=== PATIENT | male | born 2000 | race Caucasian/White ===

== ENCOUNTER 2020-08-08 17:22 | Emergency (ER) | payer SELFPAY ==
[2020-08-08 17:37] VITALS: BP 131/71; PULSE 75
--- NOTE | 2020-08-08 17:47 | EDM.PDOC ---
ED HPI GENERAL MEDICAL PROBLEM - General Chief Complaint: Abdominal Pain Stated Complaint: ABD Pain Time Seen by Provider: 08/08/20 17:35 Source of Information: Reports: Patient History Limitations: Reports: No Limitations - History of Present Illness INITIAL COMMENTS - FREE TEXT/NARRATIVE: Patient presents to ER with a 3 day history of abdominal pain. States had been waxing and waning, now getting worse. Has pain all across his lower abdomen, hurts with pressure applied "anywhere on my abdomen". Has felt feverish. States felt quite warm when he awoke this am. He admits to nausea each morning when awakening. No vomiting. Denies constipation or diarrhea. No blood in his stools. No urinary symptoms. Denies sinus congestion, sore throat, cough. Onset: Gradual Duration: Day(s):, Waxing/Waning Location: Reports: Abdomen Quality: Reports: Ache Severity: Moderate Improves with: Reports: None Associated Symptoms: Reports: Fever/Chills, Nausea/Vomiting. Denies: Confusion, Chest Pain, Cough, Loss of Appetite, Malaise, Shortness of Breath Treatments HYDROE[employer]: Reports: Acetaminophen lower abd Pain Score (Numeric/FACES): 6 - Related Data Allergies Allergy/AdvReac Type Severity Reaction Status Date / Time carbinoxamine maleate Allergy Hives Verified 08/08/20 17:50 [From Rondec] Cephalosporins Allergy Rash Verified 08/08/20 17:50 pseudoephedrine HCl Allergy Hives Verified 08/08/20 17:50 [From Rondec] sulfamethoxazole Allergy Stomach Verified 08/08/20 17:50 [From Bactrim] Ache trimethoprim [From Bactrim] Allergy Stomach Verified 08/08/20 17:50 Ache Past Medical History - Past Health History Medical/Surgical History: Denies Medical/Surgical History Cardiovascular History: Reports: Hypertension Immunologic History: Reports: Immunosuppression - Past Surgical History HEENT Surgical History: Reports: Myringotomy w Tube(s), Tonsillectomy Social & Family History - Family History Family Medical History: Noncontributory - Tobacco Use Smoking Status *Q: Current Every Day Smoker Years of Tobacco use: 6 Packs/Tins Daily: 1 - Caffeine Use Caffeine Use: Reports: Soda - Recreational Drug Use Recreational Drug Use: No ED ROS GENERAL - Review of Systems Review Of Systems: See Below Constitutional: Reports: Fever, Chills, Malaise, Weakness, Fatigue. Denies: Decreased Appetite HEENT: Reports: Rhinitis. Denies: Ear Pain, Throat Pain Respiratory: Denies: Shortness of Breath, Cough Cardiovascular: Denies: Chest Pain, Edema, Lightheadedness Endocrine: Reports: Fatigue GI/Abdominal: Reports: Abdominal Pain, Nausea. Denies: Black Stool, Bloody Stool, Constipation, Diarrhea, Vomiting : Reports: No Symptoms Musculoskeletal: Reports: No Symptoms Skin: Reports: No Symptoms Neurological: Reports: No Symptoms Psychiatric: Reports: No Symptoms ED EXAM, GI/ABD - Physical Exam Exam: See Below Exam Limited By: No Limitations General Appearance: Alert, WD/WN, No Apparent Distress Ears: Normal External Exam, Normal TMs Nose: Normal Inspection, Normal Mucosa, No Blood Throat/Mouth: Normal Inspection, Normal Oropharynx Head: Normocephalic Neck: Normal Inspection, Supple, Non-Tender Respiratory/Chest: No Respiratory Distress, Lungs Clear, Normal Breath Sounds Cardiovascular: Regular Rate, Rhythm GI/Abdominal Exam: Normal Bowel Sounds, Soft, Tender (tender diffusely throughout) Extremities: Normal Inspection, No Pedal Edema Neurological: Alert, Oriented Skin Exam: Warm, Dry Course - Vital Signs Last Recorded V/S: Last Vital Signs Temp 97.8 F 08/08/20 17:26 Pulse 75 08/08/20 17:26 Resp 14 08/08/20 17:26 BP 131/71 08/08/20 17:26 Pulse Ox 98 08/08/20 17:26 - Orders/Labs/Meds Orders: Active Orders 24 hr Category Date Time Status Abdomen 2V AP Flat Upright [CR] Stat Exams 08/08/20 17:34 Taken UA RFX RADHA AND CULT IF INDIC [URIN] Stat Lab 08/08/20 17:34 Ordered Labs: Laboratory Tests 08/08/20 08/08/20 08/08/20 Range/Units 17:33 17:33 17:34 WBC 7.8 (5.0-10.0) 10^3/uL RBC 4.95 (4.50-6.00) 10^6/uL Hgb 14.0 (14.0-18.0) g/dL Hct 41.7 (40.0-54.0) % MCV 84.2 (82.0-94.0) fL MCH 28.3 (27.0-32.0) pg MCHC 33.6 (33.0-38.0) g/dL RDW Coeff of Melvi 12.6 (11.0-15.0) % Plt Count 230 (150-400) 10^3/uL Neut % (Auto) 66.9 (35-85) % Lymph % (Auto) 24.4 (10-55) % [place] % (Auto) 6.7 (0-16) % Eos % (Auto) 1.4 (0-5) % Baso % (Auto) 0.6 (0-3) % Neut # (Auto) 5.19 (1.80-7.00) 10^3/uL Lymph # (Auto) 1.89 (1.00-4.80) 10^3/uL [place] # (Auto) 0.52 (0.00-0.80) 10^3/uL Eos # (Auto) 0.11 (0.00-0.45) 10^3/uL Baso # (Auto) 0.05 10^3/uL Sodium 143 (136-145) mEq/L Potassium 4.1 (3.5-5.0) mEq/L Chloride 104 (98-106) mEq/L Carbon Dioxide 30 (21-32) mmol/L BUN 8 (7-18) mg/dL Creatinine 1.0 (0.7-1.3) mg/dL Est Cr Clr Drug Dosing 112.45 mL/min Estimated GFR (MDRD) > 60 (>=60) mL/min Glucose 99 (75-99) mg/dL Calcium 9.0 (8.4-10.1) mg/dL Total Bilirubin 1.2 H (0.0-1.0) mg/dL AST 9 L (15-37) U/L ALT 13 (12-78) U/L Alkaline Phosphatase 46 (46-116) U/L C-Reactive Protein < 0.2 L (0.2-0.8) mg/dL Total Protein 7.4 (6.4-8.2) g/dL Albumin 4.3 (3.4-5.0) g/dL Amylase 26 (25-115) U/L Lipase 114 (73-393) U/L Urine Color Yellow (YELLOW) Urine Appearance Clear (CLEAR) Urine pH 7.5 (4.5-8.0) Ur Specific [place] 1.025 H (1.003-1.020) Urine Protein Negative (NEGATIVE) mg/dL Urine Glucose (UA) Negative (NEGATIVE) mg/dL Urine Ketones Negative (NEGATIVE) mg/dL Urine Occult Blood Negative (NEGATIVE) Urine Nitrite Negative (NEGATIVE) Urine Bilirubin Negative (NEGATIVE) Urine Urobilinogen 0.2 (0.2-1.0) EU/dL Ur Leukocyte Esterase Negative (NEGATIVE) - Re-Assessments/Exams Free Text/Narrative Re-Assessment/Exam: 08/08/20 18:23 labs are all normal. Xray shows moderate fecal volume discussed with patient and mother. Departure - Departure Time of Disposition: 18:23 Disposition: Home, Self-Care 01 Condition: Good Clinical Impression: Abdominal pain, Constipation - Discharge Information *PRESCRIPTION DRUG MONITORING PROGRAM REVIEWED*: No *COPY OF PRESCRIPTION DRUG MONITORING REPORT IN PATIENT DARIAN: No Instructions: Abdominal Pain, Adult, [id number], Constipation, Adult Additional Instructions: 1. Push fluids 2. Tylenol for discomfort 3. Miralax daily, may take laxative yet tonight 4. Follow up for further imaging and labs if persisting fever, vomiting or pain Sepsis Event Note (ED) - Evaluation Sepsis Screening Result: No Definite Risk - Focused Exam Vital Signs: Vital Signs Temp Pulse Resp BP Pulse Ox 08/08/20 17:26 97.8 F 75 14 131/71 98 - My Orders Last 24 Hours: My Active Orders 08/08/20 17:34 Abdomen 2V AP Flat Upright [CR] Stat UA RFX RADHA AND CULT IF INDIC [URIN] Stat - Assessment/Plan Last 24 Hours: My Active Orders 08/08/20 17:34 Abdomen 2V AP Flat Upright [CR] Stat UA RFX RADHA AND CULT IF INDIC [URIN] Stat
[2020-08-08 18:03] LABS: CHLORIDE,CL 104 mEq/L (98-106); SODIUM,NA 143 mEq/L (136-145)
== END 2020-08-08 18:50 | disposition home or self-care (01) ==
LOC: CC.ED 17:22
DX: K59.00 Constipation, unspecified (principal); I10 Essential (primary) hypertension; F17.210 Nicotine dependence, cigarettes, uncomplicated; Z88.2 Allergy status to sulfonamides; Z88.1 Allergy status to other antibiotic agents; Z88.8 Allergy status to other drugs, medicaments and biological substances
CPT/HCPCS: 36415; 74019; 80053; 81003; 82150; 83690; 85025; 86140; 99284-25